=== PATIENT | female | born 1980 | race Two or more races ===

== ENCOUNTER 2025-05-08 08:31 | Emergency (ER) | payer OTHER ==
[~2025-05-08] VITALS: Ht 162.6 cm; Wt 86.2 kg
[2025-05-08] MEDS ORDERED: TAMSULOSIN HCL 0.4 MG CAP PO ONE ×2 (09:15→10:34)
[2025-05-08] MEDS ORDERED: KETOROLAC TROMETHAMINE 60 MG VIAL IM ONE ×2 (09:15→10:34)
[2025-05-08] MEDS ORDERED: CEFTRIAXONE SODIUM 1,000 MG VIAL IM ONE (09:15)
[2025-05-08] MEDS ORDERED: CEFTRIAXONE SODIUM 1,000 MG VIAL ONE (10:34)
[2025-05-08 11:29] LABS: BASO % 0.5 % (0.1-1.2); EOS # 0.24 (0.04-0.54); EOS % 1.8 % (0.7-7.0); LYMPH # 2.34 (1.18-3.74); LYMPH % 17.3 % (19.3-53.1); MEAN PLATELET VOLUME 11.90 fl (9.4-12.4); MONO # 1.03 (0.24-0.82); MONO % 7.6 % (4.7-12.5); NEUT # 9.70 (1.56-6.13); NEUT % 71.9 % (34.0-71.1); RED CELL DISTRIBUTION WIDTH 14.5 % (11.6-14.4)
[2025-05-08 11:55] LABS: URINE APPEARANCE Cloudy; URINE BILIRRUBIN Negative (NEGATIVE); URINE BLOOD Moderate; URINE COLOR Yellow; URINE GLUCOSE Negative (NEGATIVE); URINE KETONE Negative (NEGATIVE); URINE LEUKOCYTE Moderate; URINE NITRATE Negative; URINE PROTEIN 30 (NEGATIVE); URINE UROBILINOGEN 0.2 E.U./dl
[2025-05-08 12:03] LABS: URINE BACTERIA 783.5 uL (0.0-1933); URINE EPITHELIAL CELLS 10.3 uL (0.0-38.8); URINE RBC 262.9 uL (0.0-20.8); URINE WBC 1251.8 uL (0.0-23.2)
[2025-05-08 12:10] LABS: URINE CAST 0.00 uL (0.0-1.40)
[2025-05-08] MEDS ORDERED: PEPCID AC20 MG PO (13:07)
[2025-05-08] MEDS ORDERED: BACTRIM DS TAB1 EACH PO (13:07)
== END 2025-05-08 13:14 | disposition home or self-care (01) ==
LOC: ER 08:32
PROVIDERS: General Practice
DX: N39.0 Urinary tract infection, site not specified (principal); R30.0 Dysuria; R20.8 Other disturbances of skin sensation